=== PATIENT | male | born 1990 | race Hispanic/Latino ===

== ENCOUNTER 2017-03-15 03:29 | Emergency (ER) | payer OTHER ==
[~2017-03-15] VITALS: Ht 185.4 cm; Wt 106.8 kg
[2017-03-15 04:12] LABS: BASO # 0.1 K/mm3 (0.0-0.2); BASO % 0.7 % (0.0-1.0); EOS # 0.6 K/mm3 (0.0-0.50); EOS % 7.1 % (0.0-3.0); LARGE UNSTAINED CELL # 0.2 K/mm3 (0.0-0.4); LARGE UNSTAINED CELL % 1.7 % (0.0-4.0); LYMPH # 1.8 K/mm3 (1.5-6.5); LYMPH % 19.1 % (24.0-44.0); MEAN CORPUSCULAR HEMOGLOBIN 30.5 pg (27.0-33.0); MEAN CORPUSCULAR HGB CONC 34.5 g/dl (32.0-36.5); MEAN CORPUSCULAR VOLUME 88.5 fl (80.0-96.0); MONO # 0.5 K/mm3 (0.0-0.8); MONO % 6.2 % (0.0-5.0); NEUTROPHILS # 5.5 K/mm3 (1.8-7.7); NEUTROPHILS % 65.2 % (36.0-66.0); PLATELET COUNT, AUTOMATED 193 k/mm3 (150-450); RED CELL DISTRIBUTION WIDTH 12.4 % (11.5-14.5); WHITE BLOOD COUNT 8.5 K/mm3 (4.0-10.0)
[2017-03-15 04:30] LABS: ANION GAP 7 MEQ/L (8-16); BLOOD UREA NITROGEN 12 MG/DL (7-18); CALCIUM LEVEL 8.4 MG/DL (8.5-10.1); CARBON DIOXIDE LEVEL 24 MEQ/L (21-32); CHLORIDE LEVEL 107 MEQ/L (98-107); GLOMERULAR FILTRATION RATE > 60.0 (>60); GLUCOSE, FASTING 101 MG/DL (70-105); POTASSIUM SERUM 3.5 MEQ/L (3.5-5.1); SODIUM LEVEL 138 MEQ/L (136-145)
--- NOTE | 2017-03-15 04:47 | REP ---
Clinical: Dyspnea and cough. Comparison: None. Technique: PA and lateral. Five views: Subtle bilateral perihilar ground-glass opacities (left greater than right) are suggested and may reflect bronchitis/early pneumonia. No obvious effusion. No pneumothorax. Mediastinum and cardiac silhouette are normal. Skeletal structures are intact. Impression: Subtle bilateral ground-glass opacities are suspected and may reflect bronchitis/early pneumonia. Signed by Chase Solano MD 03/15/2017 04:39 A
[2017-03-15] MEDS ORDERED: IPRATROPIUM 0.5MG/ALBUTEROL 2.5MG INH SOL UD 3ML (DUONEB)(J7620) NEB ONE (06:30)
[2017-03-15] MEDS ORDERED: ACETAMINOPHEN 325 MG TAB PO ONE (06:30)
[2017-03-15] MEDS ORDERED: ALBUTEROL SULFATE 2.5 MG/0.5 ML INH NEB SOLN NEB ONE (06:30)
[2017-03-15] MEDS ORDERED: cefTRIAXone SOD 2 GM in D5W MINI-BAG PLUS 50 ML IV ONE (06:30)
[2017-03-15] MEDS ORDERED: PRED10TA2 PO (07:27)
[2017-03-15] MEDS ORDERED: ALBU17IN2 INH (07:27)
[2017-03-15] MEDS ORDERED: ZITHTAB PO (07:27)
[2017-03-15] MEDS ORDERED: ALBUTEROL 90 MCG/ACT 8GM HFA INHALER INH ONE (07:30)
[2017-03-15] MEDS ORDERED: AZITHROMYCIN 250 MG TAB PO ONE (07:30)
[2017-03-15 08:25] VITALS: BP 135/80
== END 2017-03-15 08:30 | disposition home or self-care (01) ==
LOC: M ED 04:47
DX: J45.901 Unspecified asthma with (acute) exacerbation (principal); J84.9 Interstitial pulmonary disease, unspecified; I10 Essential (primary) hypertension; G43.909 Migraine, unspecified, not intractable, without status migrainosus
CPT/HCPCS: 36415; 71020; 80048; 85025; 87040; 94640; 96374; 99284; J0696

== ENCOUNTER 2017-04-12 20:56 | Emergency (ER) | payer OTHER ==
[~2017-04-12] VITALS: Ht 185.4 cm; Wt 109.1 kg
[~2017-04-12 20:56] MED LIST: ALBU17IN2 INH; PRED10TA2 PO; ZITHTAB PO
[2017-04-12 21:04] VITALS: BP 144/88
--- NOTE | 2017-04-13 07:28 | REP ---
Acute abdominal series three views including PA chest and supine upright views of the abdomen: Comparison is a PA and lateral chest dated 03/15/2017. PA chest: The lung granda are clear. Cardiac size is normal. The [place], mediastinum, and bony thorax are unremarkable. There is no free subdiaphragmatic air. Impression: Negative PA chest. Abdomen, supine and upright views: There is a metallic screw superimposed over the midabdomen slightly to the left of midline. There is no lateral view therefore, I am unable to determine whether this is external to the patient or internal. The bowel gas pattern is normal. Skeletal structures and soft tissues otherwise are unremarkable. Signed by Rohan Doty MD 04/13/2017 07:20 A
== END 2017-04-12 22:15 | disposition home or self-care (01) ==
LOC: M ED 20:56 → EDBD 20:56 → M ED 22:15
DX: T18.9XXA Foreign body of alimentary tract, part unspecified, initial encounter (principal); T14.91 Suicide attempt; X58.XXXA Exposure to other specified factors, initial encounter; Y92.9 Unspecified place or not applicable; Y93.9 Activity, unspecified; Y99.8 Other external cause status; J45.909 Unspecified asthma, uncomplicated; F17.200 Nicotine dependence, unspecified, uncomplicated; Z79.899 Other long term (current) drug therapy